=== PATIENT | female | born 1960 | race Caucasian/White ===

== ENCOUNTER → 2017-10-17 | Emergency (ER) | payer OTHER ==
[~2017-10-17] VITALS: Ht 154.9 cm; Wt 59.0 kg
[~2017-10-17] MED LIST: AMOX1TAB5 PO; AVAPRO150 MG; CEFUROXIME500 MG PO; HYOSCYAMINE0.125 M1 SL; INTESTINEX1 CA1 PO; LEVAQUIN750 MG PO; TRAM1TAB98 PO; URIN D.S. TABL1 EACH PO; VITAMIN D310000 UNIT
== END | disposition home or self-care (01) ==
LOC: ER 15:44
DX: N82.4 Other female intestinal-genital tract fistulae (principal); N39.0 Urinary tract infection, site not specified; Z01.810 Encounter for preprocedural cardiovascular examination

== ENCOUNTER 2017-10-30 06:26 | Inpatient (IN) | payer OTHER ==
[~2017-10-30] VITALS: Ht 154.9 cm; Wt 59.0 kg
[2017-11-10] MEDS ORDERED: DICY20TA PO (17:36)
[2017-11-10] MEDS ORDERED: ULTRACET PO (17:36)
== END 2017-11-10 19:19 | disposition home or self-care (01) | DRG 394 ==
LOC: ER 06:26 → SEC-K 15:35 → SURH 15:35
PROC: 02HV33Z Insertion of Infusion Device into Superior Vena Cava, Percutaneous Approach (ICD-10-PCS; 2017-10-31)
PROC: 3E0436Z Introduction of Nutritional Substance into Central Vein, Percutaneous Approach (ICD-10-PCS; 2017-11-01)
PROC: BW3GYZZ Magnetic Resonance Imaging (MRI) of Pelvic Region using Other Contrast (ICD-10-PCS; principal; 2017-11-06)
DX: N82.3 Fistula of vagina to large intestine (principal); N39.0 Urinary tract infection, site not specified; D50.8 Other iron deficiency anemias
CPT/HCPCS: 72196

== ENCOUNTER 2017-11-28 09:21 | Outpatient (CLI) | payer OTHER ==
[~2017-11-28 09:21] MED LIST changes: +DICY20TA PO; +ULTRACET PO
== END 2017-11-28 09:28 | disposition home or self-care (01) ==
LOC: RX STUDY 09:21
DX: N82.3 Fistula of vagina to large intestine (principal); K63.9 Disease of intestine, unspecified; R19.4 Change in bowel habit; K63.1 Perforation of intestine (nontraumatic); K94.09 Other complications of colostomy

== ENCOUNTER 2017-12-16 17:08 | Emergency (ER) | payer OTHER ==
[~2017-12-16] VITALS: Ht 154.9 cm; Wt 59.9 kg
[2017-12-16] MEDS ORDERED: SULFATRIM 800-120 ML (17:35)
== END 2017-12-16 18:30 | disposition home or self-care (01) ==
LOC: ER 17:08
DX: L30.8 Other specified dermatitis (principal)

== ENCOUNTER 2018-01-02 07:30 | Inpatient (IN) | payer OTHER ==
[~2018-01-02] VITALS: Ht 152.4 cm; Wt 59.0 kg
[~2018-01-02 07:30] MED LIST changes: +SULFATRIM 800-120 ML
[2018-01-13] MEDS ORDERED: IMODIUM A-D2 M2 PO (13:21)
[2018-01-13] MEDS ORDERED: ZANTAC150 M3 PO (13:21)
[2018-01-13] MEDS ORDERED: INTESTINEX680 M1 PO (13:21)
[2018-01-13] MEDS ORDERED: ULTRACET PO (13:21)
== END 2018-01-13 16:25 | disposition home or self-care (01) | DRG 330 ==
LOC: SURH 01-05 07:30 → SURG 01-08 10:46 → O/R 01-08 10:46 → SURG 01-08 20:40
PROVIDERS: Surgery
PROC: 0UQG0ZZ Repair Vagina, Open Approach (ICD-10-PCS; 2018-01-08)
PROC: 0DQ80ZZ Repair Small Intestine, Open Approach (ICD-10-PCS; 2018-01-08)
PROC: 0DTK0ZZ Resection of Ascending Colon, Open Approach (ICD-10-PCS; 2018-01-08)
PROC: 0DTB0ZZ Resection of Ileum, Open Approach (ICD-10-PCS; 2018-01-08)
PROC: 0WQF0ZZ Repair Abdominal Wall, Open Approach (ICD-10-PCS; 2018-01-08)
PROC: 0DNB0ZZ Release Ileum, Open Approach (ICD-10-PCS; principal; 2018-01-08 09:00)
DX: N82.2 Fistula of vagina to small intestine (principal); K91.71 Accidental puncture and laceration of a digestive system organ or structure during a digestive system procedure; K66.0 Peritoneal adhesions (postprocedural) (postinfection); K43.2 Incisional hernia without obstruction or gangrene

== ENCOUNTER 2018-02-26 23:43 | Emergency (ER) | payer OTHER ==
[~2018-02-26] VITALS: Ht 154.9 cm; Wt 56.7 kg
[~2018-02-26 23:43] MED LIST changes: +IMODIUM A-D2 M2 PO; +INTESTINEX680 M1 PO; +ZANTAC150 M3 PO
[2018-02-27] MEDS ORDERED: KETO10TA2 PO (05:32)
[2018-02-27] MEDS ORDERED: LEVAQUIN750 MG PO (05:32)
== END 2018-02-27 05:55 | disposition home or self-care (01) ==
LOC: ER 23:43
DX: N39.0 Urinary tract infection, site not specified (principal)

== ENCOUNTER 2018-03-22 08:06 | Emergency (ER) | payer OTHER ==
[~2018-03-22] VITALS: Ht 152.4 cm; Wt 54.4 kg
[~2018-03-22 08:06] MED LIST changes: +KETO10TA2 PO
[2018-03-22] MEDS ORDERED: ENDOCET 5-3251 EACH (08:22)
[2018-03-22] MEDS ORDERED: PREVACID30 MG (08:23)
== END 2018-03-22 21:35 | disposition home or self-care (01) ==
LOC: ER 08:06
DX: K29.60 Other gastritis without bleeding (principal)

== ENCOUNTER 2018-08-01 16:32 | Emergency (ER) | payer OTHER ==
[~2018-08-01] VITALS: Ht 154.9 cm; Wt 51.7 kg
[~2018-08-01 16:32] MED LIST changes: +ENDOCET 5-3251 EACH; +PREVACID30 MG
== END 2018-08-01 19:43 | disposition home or self-care (01) ==
LOC: ER 16:32
DX: N20.0 Calculus of kidney (principal)

== ENCOUNTER 2019-03-29 17:06 | Emergency (ER) | payer OTHER ==
[~2019-03-29] VITALS: Ht 154.9 cm; Wt 48.5 kg
== END 2019-03-29 21:05 | disposition home or self-care (01) ==
LOC: ER 17:06
DX: N30.80 Other cystitis without hematuria (principal)

== ENCOUNTER 2019-04-06 19:21 | Emergency (ER) | payer OTHER ==
[~2019-04-06] VITALS: Ht 165.1 cm; Wt 52.2 kg
== END 2019-04-06 22:57 | disposition home or self-care (01) ==
LOC: ER 19:21
DX: N20.0 Calculus of kidney (principal)

== ENCOUNTER 2019-07-08 12:26 | Emergency (ER) | payer OTHER ==
[~2019-07-08] VITALS: Ht 180.3 cm; Wt 47.2 kg
== END 2019-07-08 14:43 | disposition home or self-care (01) ==
LOC: ER 12:26
DX: S00.83XA Contusion of other part of head, initial encounter (principal); S20.212A Contusion of left front wall of thorax, initial encounter; W18.09XA Striking against other object with subsequent fall, initial encounter; Y93.89 Activity, other specified; Y92.018 Other place in single-family (private) house as the place of occurrence of the external cause; Y99.8 Other external cause status

== ENCOUNTER 2019-10-15 15:18 | Inpatient (IN) | payer OTHER ==
[~2019-10-15] VITALS: Ht 154.9 cm; Wt 47.2 kg
[2019-10-15] MEDS ORDERED: PROTONIX40 MG (15:43)
[2019-10-15] MEDS ORDERED: TRENTAL (15:44)
[2019-10-18] MEDS ORDERED: INTEGRA PLUS C1 EACH PO (18:40)
[2019-10-18] MEDS ORDERED: FOLIC ACID1 MG PO (18:40)
[2019-10-18] MEDS ORDERED: Neurin-Sl Tablet Sl SL (18:40)
== END 2019-10-18 19:41 | disposition home or self-care (01) | DRG 812 ==
LOC: ER 15:18 → SURG 10-16 01:02 → SEC-K 10-16 01:02 → SURG 10-16 09:15
PROVIDERS: ADMIT Internal Medicine
PROC: 30233N1 Transfusion of Nonautologous Red Blood Cells into Peripheral Vein, Percutaneous Approach (ICD-10-PCS; principal; 2019-10-16)
DX: D50.8 Other iron deficiency anemias (principal)

== ENCOUNTER 2019-10-25 23:32 | Emergency (ER) | payer OTHER ==
[~2019-10-25] VITALS: Ht 157.5 cm; Wt 46.7 kg
[~2019-10-25 23:32] MED LIST changes: +FOLIC ACID1 MG PO; +INTEGRA PLUS C1 EACH PO; +Neurin-Sl Tablet Sl SL; +PROTONIX40 MG; +TRENTAL
== END 2019-10-26 03:09 | disposition home or self-care (01) ==
LOC: ER 23:32
DX: R53.1 Weakness (principal)

== ENCOUNTER 2019-11-09 11:21 | Day surgery (SDC) | payer OTHER | END 2019-11-09 16:10 | disposition home or self-care (01) | LOC: AMB-ENDOS 11:21 | DX: K62.89 Other specified diseases of anus and rectum (principal); K64.8 Other hemorrhoids ==

== ENCOUNTER 2019-12-07 11:04 | Inpatient (IN) | payer OTHER ==
[~2019-12-07] VITALS: Ht 165.1 cm; Wt 57.2 kg
[2019-12-07] MEDS ORDERED: PROTONIX40 MG (11:26)
[2019-12-07] MEDS ORDERED: HEALTHY HEART1 EACH (11:26)
[2019-12-07] MEDS ORDERED: LOPERAMIDE2 MG (11:27)
[2019-12-07] MEDS ORDERED: PEPCID AC20 MG (11:27)
[2019-12-12] MEDS ORDERED: FERROUS SULFAT325 M1 PO (12:15)
[2019-12-12] MEDS ORDERED: PROTONIX40 MG PO (12:17)
== END 2019-12-12 13:56 | disposition home or self-care (01) | DRG 812 ==
LOC: ER 11:04 → MEDJ 16:13
PROVIDERS: ADMIT Specialist
PROC: 30233N1 Transfusion of Nonautologous Red Blood Cells into Peripheral Vein, Percutaneous Approach (ICD-10-PCS; principal; 2019-12-07)
DX: D50.0 Iron deficiency anemia secondary to blood loss (chronic) (principal); N82.3 Fistula of vagina to large intestine; K29.70 Gastritis, unspecified, without bleeding

== ENCOUNTER 2023-02-11 16:01 | Inpatient (IN) | payer OTHER ==
[~2023-02-11] VITALS: Ht 154.9 cm; Wt 42.2 kg
[~2023-02-11 16:01] MED LIST changes: +FERROUS SULFAT325 M1 PO; +HEALTHY HEART1 EACH; +LOPERAMIDE2 MG; +PEPCID AC20 MG; +PROTONIX40 MG PO
== END 2023-02-14 16:18 | disposition home or self-care (01) | DRG 812 ==
LOC: ER 16:01 → SEC-K 20:25 → MEDJ 20:25
PROVIDERS: ADMIT Internal Medicine; ATTEND Internal Medicine
PROC: BW21ZZZ Computerized Tomography (CT Scan) of Abdomen and Pelvis (ICD-10-PCS; 2023-02-11)
PROC: 30233N1 Transfusion of Nonautologous Red Blood Cells into Peripheral Vein, Percutaneous Approach (ICD-10-PCS; principal; 2023-02-12)
DX: D50.8 Other iron deficiency anemias (principal); K52.9 Noninfective gastroenteritis and colitis, unspecified; E86.0 Dehydration

== ENCOUNTER 2025-05-27 17:44 | Emergency (ER) | payer OTHER ==
[~2025-05-27] VITALS: Ht 154.9 cm; Wt 47.6 kg
[2025-05-27 19:59] LABS: BASO % 0.3 % (0.1-1.2); EOS # 0.00 (0.04-0.54); EOS % 0.0 % (0.7-7.0); LYMPH # 0.61 (1.18-3.74); LYMPH % 20.9 % (19.3-53.1); MEAN PLATELET VOLUME 8.70 fl (9.4-12.4); MONO # 0.47 (0.24-0.82); NEUT # 1.82 (1.56-6.13); NEUT % 62.4 % (34.0-71.1); RED CELL DISTRIBUTION WIDTH 19.6 % (11.6-14.4)
[2025-05-27 20:22] LABS: MONO % 16.1 % (4.7-12.5)
[2025-05-27 20:34] LABS: ALT/SGPT 26.0 U/L (12-78); AST/SGOT 26.0 U/L (15-37); BILIRUBIN TOTAL 0.4 mg/dL (0.3-1.2); BUN CREA RATIO 22.0 (7.0-25.0); CREATININE SERUM 0.72 mg/dL (0.55-1.02); GFR 82.08; GLOBULINA 2.9 G/DL (2.4-3.5); GLUCOSE FASTING 95.0 mg/dL (65-100); OSMOLALITY SERUM 284.0 MOSM/KG (275-295)
[2025-05-27 21:02] LABS: URINE APPEARANCE Clear; URINE BILIRRUBIN Negative (NEGATIVE); URINE BLOOD Negative; URINE COLOR Dark Yellow; URINE GLUCOSE Negative (NEGATIVE); URINE KETONE 15 (NEGATIVE); URINE LEUKOCYTE Negative; URINE NITRATE Negative; URINE PROTEIN 30 (NEGATIVE); URINE UROBILINOGEN 0.2 E.U./dl
[2025-05-27 21:05] LABS: URINE BACTERIA 465.5 uL (0.0-1933); URINE EPITHELIAL CELLS 23.2 uL (0.0-38.8); URINE RBC 30.0 uL (0.0-20.8); URINE WBC 21.5 uL (0.0-23.2)
[2025-05-27 21:30] LABS: COVID-19 AG NEGATIVE (NEGATIVE)
[2025-05-27 21:31] LABS: URINE CAST 0.14 uL (0.0-1.40); URINE MUCUS HEAVY
[2025-05-27] MEDS ORDERED: 0.9 % SODIUM CHLORIDE 500 ML IV ONE (21:45)
[2025-05-27] MEDS ORDERED: OSELTAMIVIR PHOSPHATE 75 MG CAPSULE PO ONE (21:45)
[2025-05-27] MEDS ORDERED: OSEL75CA PO (22:40)
[2025-05-27] MEDS ORDERED: TUSSIN DM LIQU118 ML PO (22:40)
== END 2025-05-27 23:00 ==
LOC: ER 17:44
PROVIDERS: Preventive Medicine Public Health & General Preventive Medicine
DX: S09.8XXA Other specified injuries of head, initial encounter (principal); W19.XXXA Unspecified fall, initial encounter; Y93.89 Activity, other specified; Y92.091 Bathroom in other non-institutional residence as the place of occurrence of the external cause; Y99.8 Other external cause status; J10.1 Influenza due to other identified influenza virus with other respiratory manifestations; R42 Dizziness and giddiness; Z20.822 Contact with and (suspected) exposure to COVID-19
CPT/HCPCS: 36415; 70450; 72125; 93005; 96365; 99284; J7042

== ENCOUNTER 2025-08-05 18:45 | Inpatient (IN) | payer OTHER ==
[~2025-08-05] VITALS: Ht 152.4 cm; Wt 47.6 kg
[~2025-08-05 18:45] MED LIST changes: +OSEL75CA PO; +TUSSIN DM LIQU118 ML PO
--- NOTE | 2025-08-05 19:59 | NUR ---
PACIENTE ALERTA Y ORIENTADA X3 QUIEN REFIERE VENIR POR HABERSE REALIZADO UN LABORATORIOS Y TENER LA HEMOGLOBINA EN 5.60
[2025-08-05] MEDS ORDERED: 0.9 % SODIUM CHLORIDE 1,000 ML IV SCH (20:30)
[2025-08-05] MEDS ORDERED: PANTOPRAZOLE SODIUM 40 MG/VIAL VIAL IV ONE (20:30)
[2025-08-05 22:06] LABS: BASO % 0.7 % (0.1-1.2); EOS # 0.07 (0.04-0.54); EOS % 1.0 % (0.7-7.0); LYMPH # 1.98 (1.18-3.74); LYMPH % 28.5 % (19.3-53.1); MEAN PLATELET VOLUME 9.30 fl (9.4-12.4); MONO # 0.68 (0.24-0.82); MONO % 9.8 % (4.7-12.5); NEUT # 4.14 (1.56-6.13); NEUT % 59.7 % (34.0-71.1); RED CELL DISTRIBUTION WIDTH 16.2 % (11.6-14.4)
[2025-08-05 22:27] LABS: INR 1.08
[2025-08-05 22:40] LABS: ALT/SGPT 22.0 U/L (12-78); AST/SGOT 20.0 U/L (15-37); BILIRUBIN TOTAL 0.38 mg/dL (0.3-1.2); BUN CREA RATIO 32.0 (7.0-25.0); CREATININE SERUM 0.66 mg/dL (0.55-1.02); GFR 90.75; GLOBULINA 3.0 G/DL (2.4-3.5); GLUCOSE FASTING 89.0 mg/dL (65-100); OSMOLALITY SERUM 284.0 MOSM/KG (275-295)
--- NOTE | 2025-08-05 22:44 | NUR ---
NAVDEEP LANDRY EDUCA ACERCA DE TX ORDENADO, CANALIZA Y COELCTA MUESTRAS DE LABORATORIO MEDIANTE MEDIDAS ASEPTICAS. SE ALONDRA ENVASE DE UA. SE ADMINISTRAN MEDICAMENTOS SHAYNA ORDEN MEDICA.
[2025-08-05 22:49] LABS: URINE APPEARANCE Clear; URINE BILIRRUBIN Negative (NEGATIVE); URINE BLOOD Small; URINE COLOR Yellow; URINE GLUCOSE Negative (NEGATIVE); URINE KETONE Negative (NEGATIVE); URINE LEUKOCYTE Trace; URINE NITRATE Negative; URINE PROTEIN Negative (NEGATIVE); URINE UROBILINOGEN 0.2 E.U./dl
[2025-08-05 22:53] LABS: URINE BACTERIA 103.1 uL (0.0-1933); URINE EPITHELIAL CELLS 12.4 uL (0.0-38.8); URINE RBC 45.7 uL (0.0-20.8); URINE WBC 37.8 uL (0.0-23.2)
[2025-08-05 23:52] LABS: URINE CAST 0.00 uL (0.0-1.40)
--- NOTE | 2025-08-06 02:08 | NUR ---
SE VERIFICA NOMBRE Y FECHA DE NACIMIENTO CON PTE. SE REQUISA 2 UNIDADES DE PRBC. SE COLECTAN TUBOS PILITOS Y SE LLEVAN A LABORATORIO. PTE FIRMA CONSENTIMINETO Y SE COLOCA EN RECORD DE PTE. SE REALIZA EKG. SE CONECTA A MONITOR CARDIACO.
--- NOTE | 2025-08-06 02:59 | NUR ---
PTE CON PREVIO RECORD EN [place]CO [place].
[2025-08-06 12:18] VITALS: BP 150/80; O2SAT 100
--- NOTE | 2025-08-06 12:30 | NUR ---
1200 PM SE CHAU S/V PREVIOS A BUSCAR UNIDAD DE [place] COMPLETA. AL MOMENTO PTE SE ENCUENTRA ALERTA Y ORIENTADA X3. AL MOMENTO PTE REFIERE NO TENER DOLOR. 1230 PM PTE ALERTA Y ORIENTADA X3, SE CHAU S/V. SE COMIENZA PRIMERA UNIDAD DE [place]IA[place]. 1245 PM SE CHAU S/V PTE ALERTA Y ORIENTADA X3. SE MANTIENE BAJO OBSERVACION POR CAMBIO. 1300 PM SE CHAU S/V PTE ALERTA Y ORIENTADA X3. SE MANTIENE BAJO OBSERVACION POR CAMBIO. 1315 PM SE CHAU S/V PTE ALERTA Y ORIENTADA X3. SE MANTIENE BAJO OBSERVACION POR CAMBIO.
[2025-08-06] MEDS ORDERED: 0.9 % SODIUM CHLORIDE 1,000 ML IV SCH (15:30)
[2025-08-06 16:56] VITALS: BP 160/82; O2SAT 100
[2025-08-07 01:00] VITALS: BP 156/81; O2SAT 97
[2025-08-07 07:52] LABS: BASO % 0.7 % (0.1-1.2); EOS # 0.06 (0.04-0.54); EOS % 1.3 % (0.7-7.0); LYMPH # 1.25 (1.18-3.74); LYMPH % 27.6 % (19.3-53.1); MEAN PLATELET VOLUME 10.20 fl (9.4-12.4); MONO # 0.52 (0.24-0.82); MONO % 11.5 % (4.7-12.5); NEUT # 2.66 (1.56-6.13); NEUT % 58.7 % (34.0-71.1); RED CELL DISTRIBUTION WIDTH 17.7 % (11.6-14.4)
[2025-08-07 08:22] LABS: INR 1.09
[2025-08-07 08:29] LABS: ALT/SGPT 23.0 U/L (12-78); AST/SGOT 18.0 U/L (15-37); BILIRUBIN TOTAL 1.42 mg/dL (0.3-1.2); BUN CREA RATIO 21.0 (7.0-25.0); CREATININE SERUM 0.52 mg/dL (0.55-1.02); GFR 119.49; GLOBULINA 2.8 G/DL (2.4-3.5); GLUCOSE FASTING 78.0 mg/dL (65-100); OSMOLALITY SERUM 283.0 MOSM/KG (275-295); TSH 0.579 uIU/mL (0.358-3.74)
[2025-08-07 09:46] LABS: ERYTHROCYTE SEDIMENTATION RATE 12 mm/hr (0-30)
[2025-08-07 09:54] VITALS: BP 147/78; O2SAT 100
[2025-08-07 10:02] LABS: URINE APPEARANCE Clear; URINE BILIRRUBIN Negative (NEGATIVE); URINE BLOOD Negative; URINE COLOR Yellow; URINE GLUCOSE Negative (NEGATIVE); URINE KETONE Negative (NEGATIVE); URINE LEUKOCYTE Trace; URINE NITRATE Negative; URINE PROTEIN Negative (NEGATIVE); URINE UROBILINOGEN 0.2 E.U./dl
[2025-08-07 10:06] LABS: URINE BACTERIA 63.5 uL (0.0-1933); URINE EPITHELIAL CELLS 4.1 uL (0.0-38.8); URINE WBC 12.3 uL (0.0-23.2)
[2025-08-07 10:35] LABS: URINE CAST 0.29 uL (0.0-1.40); URINE RBC 0.7 uL (0.0-20.8)
[2025-08-07] MEDS ORDERED: SOD FERRIC GLUC COMPLX/SUCROSE 62.5 MG in 0.9 % SODIUM CHLORIDE 50 ML IV SCH (12:00)
[2025-08-07 17:00] VITALS: BP 157/87; O2SAT 100
[2025-08-08 01:53] VITALS: BP 177/87; O2SAT 99
[2025-08-08 06:29] LABS: BASO % 0.8 % (0.1-1.2); EOS # 0.07 (0.04-0.54); EOS % 1.4 % (0.7-7.0); LYMPH # 1.31 (1.18-3.74); LYMPH % 25.6 % (19.3-53.1); MEAN PLATELET VOLUME 10.60 fl (9.4-12.4); MONO # 0.59 (0.24-0.82); MONO % 11.5 % (4.7-12.5); NEUT # 3.09 (1.56-6.13); NEUT % 60.5 % (34.0-71.1); RED CELL DISTRIBUTION WIDTH 17.1 % (11.6-14.4)
[2025-08-08] MEDS ORDERED: INTEGRA PLUS C1 EACH PO (08:49)
[2025-08-08 09:26] LABS: ob POSITIVE (NEGATIVE)
[2025-08-08 09:35] VITALS: BP 162/84; O2SAT 100
== END 2025-08-08 10:22 | disposition home or self-care (01) | DRG 812 ==
LOC: ER 18:46 → MEDI 08-06 15:22
PROVIDERS: General Practice; ADMIT Internal Medicine; ATTEND Internal Medicine
PROC: BW21ZZZ Computerized Tomography (CT Scan) of Abdomen and Pelvis (ICD-10-PCS; 2025-08-05)
PROC: 30233N1 Transfusion of Nonautologous Red Blood Cells into Peripheral Vein, Percutaneous Approach (ICD-10-PCS; principal; 2025-08-06)
DX: D64.9 Anemia, unspecified (principal); R19.5 Other fecal abnormalities; Z90.710 Acquired absence of both cervix and uterus